=== PATIENT | male | born 2000 | race Caucasian/White ===

== ENCOUNTER 2020-03-13 23:19 | Emergency (ER) | payer OTHER ==
[~2020-03-13] VITALS: Ht 180.3 cm; Wt 89.4 kg
[2020-03-14 00:11] LABS: BASO # 0.1 10^3/uL (0.0-0.2); BASO % 0.8 % (0.0-1.0); EOS # 0.1 10^3/uL (0.0-0.5); EOS % 0.7 % (0.0-3.0); HEMATOCRIT 42.8 % (42.0-52.0); HEMOGLOBIN 14.7 g/dl (13.5-17.5); LYMPH # 3.5 10^3/uL (1.5-5.0); LYMPH % 46.7 % (24.0-44.0); MEAN CORPUSCULAR HEMOGLOBIN 31.3 pg (27.0-33.0); MEAN CORPUSCULAR HGB CONC 34.3 g/dl (32.0-36.5); MEAN CORPUSCULAR VOLUME 91.3 fl (80.0-96.0); MONO # 0.8 10^3/uL (0.0-0.8); MONO % 10.7 % (0.0-5.0); NEUTROPHILS # 2.9 10^3/uL (1.5-8.5); NEUTROPHILS % 39.2 % (36.0-66.0); PLATELET COUNT, AUTOMATED 199 10^3/uL (150-450); RED BLOOD COUNT 4.69 10^6/uL (4.30-6.10); WHITE BLOOD COUNT 7.5 10^3/uL (4.0-10.0)
[2020-03-14 00:20] LABS: INR 0.88; PROTHROMBIN TIME 12.1 SECONDS (12.5-14.3)
[2020-03-14 00:22] LABS: D-DIMER QUANT 379.69 ng/ml (<500)
[2020-03-14 00:33] LABS: AMPHETAMINES LEVEL URINE NEGATIVE (NEGATIVE); BARBITURATES URINE NEGATIVE (NEGATIVE); BENZODIAZEPINES URINE NEGATIVE (NEGATIVE); CANNABINOIDS URINE NEGATIVE (NEGATIVE); COCAINE METABOLITE URINE NEGATIVE (NEGATIVE); METHADONE URINE NEGATIVE (NEGATIVE); OPIATES URINE NEGATIVE (NEGATIVE); PHENCYCLIDINE URINE NEGATIVE (NEGATIVE)
--- NOTE | 2020-03-14 00:37 | REPVR ---
PROCEDURE INFORMATION: Exam: XR Chest, 1 View Exam date and time: 03/14/2020 12:23 AM Age: 20 years old Clinical indication: Cough and dyspnea; Additional info: Dyspnea/cough TECHNIQUE: Imaging protocol: XR of the chest Views: 1 view. COMPARISON: No relevant prior studies available. FINDINGS: Lungs: Unremarkable. No consolidation. Pleural space: Unremarkable. No pleural effusion. No pneumothorax. Heart/Mediastinum: Unremarkable. No cardiomegaly. Bones/joints: Unremarkable. IMPRESSION: Negative chest. Electronically signed by: Mendoza Gonsales On 03/14/2020 00:37:28 AM
[2020-03-14 00:49] LABS: ALT/SGPT 32 U/L (12-78); BILIRUBIN,DIRECT 0.1 MG/DL (0.0-0.2); BILIRUBIN,TOTAL 0.6 MG/DL (0.2-1.0); BLOOD UREA NITROGEN 21 MG/DL (7-18); CALCIUM LEVEL 9.1 MG/DL (8.5-10.1); CARBON DIOXIDE LEVEL 28 MEQ/L (21-32); CHLORIDE LEVEL 106 MEQ/L (98-107); CK-MB VALUE MASS 1.2 NG/ML (<3.6); CPK CREATINE PHOSPHOKINASE 169 U/L (39-308); CREATININE FOR GFR 1.27 MG/DL (0.70-1.30); ETHYL ALCOHOL (ETHANOL) < 0.003 % (0.000-0.010); GLOMERULAR FILTRATION RATE > 60.0 (>60); GLUCOSE, FASTING 88 MG/DL (70-100); MB/CK RELATIVE INDEX 0.71 (< OR =4); POTASSIUM SERUM 4.2 MEQ/L (3.5-5.1); SODIUM LEVEL 139 MEQ/L (136-145); THYROXINE (T4) 9.2 UG/DL (4.5-12.0); TOTAL PROTEIN 7.2 GM/DL (6.4-8.2); TROPONIN I < 0.02 NG/ML (< 0.10)
[2020-03-14 00:56] LABS: RSV AMPLIFICATION NEGATIVE (NEGATIVE)
[2020-03-14] MEDS ORDERED: NS 1,000 ML IV ONE ×2 (01:15)
[2020-03-14] MEDS ORDERED: ALPRAZolam 0.25 MG TAB PO ONE (01:15)
[2020-03-14 02:15] VITALS: BP 142/73
--- NOTE | 2020-03-14 17:34 | ECGEPIP ---
[facility] - ED Test Date: 2020-03-13 Pat Name: MARKUS ARREDONDO Department: Room: - Gender: Male Telephone [employer] Box [employer]or: IW : 2000 Requested By: CRYSTAL Amaya Order Number: [id number] Reading MD: Florina Szymanski Measurements Intervals Creole Rate: 112 P: 54 WY: 140 QRS: 66 QRSD: 100 T: 18 QT: 317 QTc: 434 Interpretive Statements SINUS TACHYCARDIA NONSPECIFIC T-WAVE ABNORMALITY ABNORMAL RHYTHM ECG No prior Electronically Signed on 03-14-2020 17:34:40 EST by Florina Szymanski
== END 2020-03-14 02:36 | disposition home or self-care (01) ==
LOC: M ED 23:19
DX: R00.2 Palpitations (principal); E86.0 Dehydration; R00.0 Tachycardia, unspecified; R94.31 Abnormal electrocardiogram [ECG] [EKG]; F19.10 Other psychoactive substance abuse, uncomplicated; Z88.0 Allergy status to penicillin
CPT/HCPCS: 71045; 80048; 80076; 80307; 82550; 82553; 84436; 84443; 84484; 85025; 85379; 85610; 87631; 93005; 93041; 94760; 96360; 96361; 99285; G0480